=== PATIENT | female | born 1955 | race Caucasian/White ===

== ENCOUNTER 2019-12-20 10:34 | Day surgery (SDC) | payer MEDICARE, SELFPAY ==
--- NOTE | 2019-12-20 | CALC_PTH ---
PATIENT: LESLIE FLORES LOC: [facility] [place] U#:[id number] AGE/SX: 64/F ROOM: RE12/20/[address]: Dr. Genna Okeefe MD : [id number] BED: DIS: 12/20/2019 SPEC #: [id number] RECD: 12/20/19 15:13 STATUS: ITZEL GREWAL #: [id number] ANDREW: 12/20/19 00:[address]: Genna Okeefe DEPT: SURGICAL PATHOLOGY RECD BY: Jayjay Jacobson ENTERED: 12/21/19 10:50 SP TYPE: Calculi OTHR DR: Ashlie Alicea, INGRID Tissues: CALCULI Procedures: Surgery Specimen Level I HEADER OPERATION: Cystoscopy, left ureteroscopy, laser of stone PRE-OP DIAGNOSIS: Left ureteral calculus TISSUE SUBMITTED: Calculi, urinary with photo GROSS DIAGNOSIS A fragment of stone, clinically left ureteral calculus, submitted entirely for stone analysis. SJ:carlito 12/21/19 COMMENT The calculus is submitted in its entirety for chemical stone analysis. The results from this study will be reported separately. GROSS DESCRIPTION Received is one container labeled with the patient's name and designated calculi, urinary with photo. The specimen consists of a fragment of henry-brown stone measuring 0.2 x 0.1 x 0.1 cm. The entire specimen is submitted for stone analysis. / JADIEL:carlito 12/21/19 CPT: 23276
[2019-12-20 11:08] VITALS: BP 107/67; PULSE 71; RESP 16; TEMP 36.9; O2SAT 98; BMI 37.8
[2019-12-20] MEDS: Lactated Ringers 1,000 ML 100 ML IV (11:14)
--- NOTE | 2019-12-20 12:12 | PCM.HP.STD ---
Problem List (1) Left ureteral calculus Status: Acute History of Present Illness Date of Admission: 12/20/19 Chief Complaint: left flank pain, nausea and vomiting The patient is a 64 year old F with history of stones, who has been having 2 weeks of left flank pain similar to stones. She has been seen twice in the emergency room for uncontrolled pain and has failed trial of passage. Risks and benefits were discussed including but not limited to anesthesia, bleeding, infection, injury and the risks of obtaining COVID-19. She understands and desires to proceed. Past Medical History Past Medical History (Chronic Problems): Chronic Problems History of thyroid cancer (Chronic) Status post thyroidectomy, on Synthroid. Hypertension (Chronic) Allergies No Known Allergies Allergy (Verified 12/20/19 11:06) Home Medications: Ambulatory Orders Medication Instructions Recorded Levothyroxine [Synthroid] 75 mcg PO DAILY 09/13/13 Clonazepam [Klonopin] 0.5 mg PO TID 09/07/17 Amlodipine Besylate [Norvasc] 5 mg PO DAILY 12/19/19 Aspirin [Aspirin EC] 325 mg PO DAILY 12/19/19 Duloxetine Hcl [Cymbalta] 30 mg PO DAILY 12/19/19 Hydrocodone/Acetaminophen 2 tab PO BID 12/19/19 [Hydrocodon-Acetaminophen 5-325] Metronidazole [Flagyl] 500 mg PO Q8H 12/19/19 Omeprazole Magnesium [Prilosec Otc] 20 mg PO PRN PRN 12/19/19 Quetiapine Fumarate [Seroquel] 400 mg PO QHS 12/19/19 Topiramate [Topamax] 100 mg PO QHS 12/19/19 traZODone [Desyrel] 100 mg PO QHS 12/19/19 Surgical History: appendectomy, cholecystectomy, tonsillectomy, - - Thyroidectomy. Lithotripsy. 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 Denies: Diarrhea Genitourinary: Denies: Dysuria, Frequency, Retention, Urgency Gynecological: Denies: Vaginal discharge Musculoskeletal: Denies: Muscle pain Skin: Denies: Wounds Neurological: Denies: Difficulty swallowing VTE Information - Inpt Only VTE Present on Admission: Yes VTE Mechan Device Prophylaxis: SCD's VTE Pharm Prophylaxis ordered?: No Reason prophylaxis not ordered:: Treatment Not Indicated Patient Problems: Active and Suspected Problems Left ureteral calculus (Acute) - Physical Exam Vitals/I&O's: Vital Signs Temp Pulse Resp BP Pulse Ox 98.5 F 71 16 107/67 98 12/20/19 11:08 12/20/19 11:08 12/20/19 11:08 12/20/19 11:08 12/20/19 11:08 Oxygen Delivery Method Room Air Weight: 88 kg Body Mass Index (BMI) 37.8 General: Alert, Oriented x3, Cooperative, Well developed, Well nourished HEENT: Atraumatic, Normocephalic Oral: Moist Mucosa Neck: Supple, Trachea Midline Lungs: Normal air movement Cardiovascular: Regular Rhythm Abdomen: Soft, Non Tender, - - left CVA tenderness to palpation Extremities: No Calf Tenderness Skin: No rashes Musculoskeletal: No Muscle Wasting Neurological: Cranial nerves II-XII grossly intact Psych/Mental Status: Normal Affect Current Medications Lactated Ringer's () 1,000 mls @ 100 mls/hr IV .Q10H MAGO Last Admin: 12/20/19 11:14 Dose: 100 mls/hr Documented by: Assessment/Plan All Active Problems Left ureteral calculus (Acute) Chest pain (Acute) cystoscopy, left ureteroscopy, holmium laser lithotripsy and left ureteral stent insertion Essential Procedure Criteria Procedure Essential: Yes Criteria Note: On 11/07/2019 the [place] Department of Health ([facility]) Public Order signed by [facility] Director Elana Wetzel M.D., regarding the Management of Non-Essential Surgeries and Procedures for the purpose of preserving Personal Protective Equipment (PPE) and critical hospital capacity and resources within [place] went into effect as of 11/08/2019 at 5:00PM. According to the [facility] Public Order: This action will remain in full force and effect until the State of Emergency declared by the Governor no longer exists or the Director of the [facility] rescinds or modifies this Order.. This [facility] order stated all non-essential or elective surgeries and procedures that utilize PPE should be delayed unless there is undue risk to the current or future health of a patient. After reviewing the aforementioned [facility] Public Order and the patients clinical case, I have determined that the scheduled procedure meets the criteria to go forward. Risk to Patient if Procedure Delayed: Presence of severe symptoms causing an inability to perform ADL's - uncontrolled pain, nausea and vomiting due to ureteral stone
[2019-12-20] MEDS: Cefazolin 2 GM in 0.9% Normal Saline 100 ML IV (13:02)
[2019-12-20 13:45] VITALS: BP 107/67; BP 108/74; PULSE 83; RESP 14; TEMP 36.2; O2SAT 94
--- NOTE | 2019-12-20 13:49 | DCINST_ITS ---
Discharge Diet: No Restrictions Discharge Activity: May not drive while taking narcotic pain medications. Call your doctor if you observe: Fever of 101 or Higher, Inability to urinate, Inability to have a bowel movement, Uncontrolled pain Allergies/Adverse Reactions: Allergies No Known Allergies Allergy (Verified 12/20/19 11:06) Medications to take at Discharge Levothyroxine [Synthroid] 75 mcg PO DAILY 09/13/13 Clonazepam [Klonopin] 0.5 mg PO TID 09/07/17 Amlodipine Besylate [Norvasc] 5 mg PO DAILY 12/19/19 Aspirin [Aspirin EC] 325 mg PO DAILY 12/19/19 Duloxetine Hcl [Cymbalta] 30 mg PO DAILY 12/19/19 Hydrocodone/Acetaminophen [Hydrocodone-Acetamin 5-325 mg] 2 tab PO BID 12/19/19 Metronidazole [Flagyl] 500 mg PO Q8H 12/19/19 Omeprazole Magnesium [Prilosec Otc] 20 mg PO PRN PRN 12/19/19 Quetiapine Fumarate [Seroquel] 400 mg PO QHS 12/19/19 Topiramate [Topamax] 100 mg PO QHS 12/19/19 traZODone [Desyrel] 100 mg PO QHS 12/19/19 Cephalexin [Keflex] 500 mg PO Q12 3 Days #6 cap 12/20/19 Phenazopyridine HCl [Pyridium] 200 mg PO TID PRN PRN 7 Days #30 tab 12/20/19 The following prescriptions were given: Cephalexin [Keflex] 500 mg PO Q12 3 Days #6 cap Transmission Status: Pending to [facility] Phenazopyridine HCl [Pyridium] 200 mg PO TID PRN PRN 7 Days #30 tab PRN Reason: Bladder Spasms Transmission Status: Pending to [facility] Primary Care Physician: Ashlie Alicea NP-C [Primary Care Provider] - Test Results: Test results from this visit will be discussed in further detail at your follow- up appointment, if applicable. Please Follow Up With: Genna Okeefe MD When: call office to make appt for tomorrow Proposed Discharge Date: 12/20/19
--- NOTE | 2019-12-20 13:50 | OP.PCM_ITS ---
Problem List (1) Left ureteral calculus Status: Acute Report of Operation Date of Procedure: 12/20/19 Pre-Operative Diagnosis: left ureteral calculus Post-Operative Diagnosis: same Surgery/Procedure Performed:: cystoscopy, left ureteroscopy, laser lithotripsy, left ureteral stent insertion Type of Anesthesia:: General Specimen's removed: stone fragment Description of Procedure: Patient is a 64-year-old female with a history of stones. She has had left flank pain for the last several weeks and has been seen in the emergency room twice. She was identified as having a distal left ureteral calculus approximately 2 to 3 mm in size. She failed trial of passage due to recurrent uncontrolled pain associated with nausea and vomiting. She now presents for definitive management of her stone. Risks benefits and alternatives were discussed including but not limited to the risks of anesthesia, bleeding, infection, injury and COVID-19 infection. She understands and started to proceed. The patient was taken to the operating room and placed on the operating room table. Anesthesia monitored the head, neck, airway, IV access and vital signs throughout the case. Once anesthesia was appropriate administered, the patient was placed into dorsal lithotomy position and was prepped and draped in usual sterile fashion. A cystourethroscopy was performed through the urethra. No bladder or urethral mucosal abnormalities were identified. The left ureteral orifice was visualized and intubated with a 0.035 Glidewire. Semirigid ureter oscopy was performed using fluoroscopic visualization. The stone was directly visualized in the distal ureter. Access to the ureter was obtained using the help of a 0.025 Glidewire. The stone was lasered into small fragments using the holmium laser fiber at a setting of 0.6 J and 6 Hz. The stone fragments popped out of the ureteral orifice into the urinary bladder. Ureteroscopy was performed up to the level of the proximal ureter and no further stone fragments were identified, either directly or under fluoroscopic visualization. At this time the ureteroscope was removed, and using the safety wire and the cystoscope, a 6 Tamazight 22 cm stent was inserted over the wire. Good positioning was achieved in the renal pelvis as well as the urinary bladder. The bladder was emptied and one fragment was identified and sent for evaluation. The patient was then awakened and taken to the recovery room in good condition. There were no complications during this procedure. Grafts/Implants Used: 6x22 JJ stent - Complications none - Admit VTE Documentation VTE Present on Admission: Yes VTE Mechan Device Prophylaxis: SCD's VTE Pharm Prophylaxis ordered?: No Reason prophylaxis not ordered:: Treatment Not Indicated
[2019-12-20 14:00] VITALS: BP 107/67; BP 108/68; PULSE 75; RESP 14; O2SAT 98
[2019-12-20 14:15] VITALS: BP 107/67; BP 112/79; PULSE 73; RESP 14; O2SAT 94
[2019-12-20 14:30] VITALS: BP 107/67; BP 127/84; PULSE 73; RESP 16; TEMP 36.3; O2SAT 96
[2019-12-20 15:19] VITALS: BP 107/67; BP 135/79; PULSE 70; RESP 15; TEMP 36.3; O2SAT 94
[2019-12-20] MEDS: HYDROcodone Bitartrate/Apap 5/325 Tablet PO (15:20)
== END 2019-12-20 15:44 | disposition home or self-care (01) ==
LOC: SDC 10:37 → AC 10:40
PROVIDERS: PCP Nurse Practitioner Family; Referring Provider Urology; Visit Provider Urology
PROC: 0TJ98ZZ Inspection of Ureter, Via Natural or Artificial Opening Endoscopic (ICD-10-PCS; CPT 52352; principal; 2019-12-20 14:50)
DX: N20.1 Calculus of ureter (principal); I10 Essential (primary) hypertension; E89.0 Postprocedural hypothyroidism; F41.9 Anxiety disorder, unspecified; K21.9 Gastro-esophageal reflux disease without esophagitis; F32.9 Major depressive disorder, single episode, unspecified; E78.00 Pure hypercholesterolemia, unspecified; Z79.899 Other long term (current) drug therapy; Z85.850 Personal history of malignant neoplasm of thyroid; Z79.82 Long term (current) use of aspirin
CPT/HCPCS: 52356; 76000; 82360; 88300; J7120; C2625; J2405

== ENCOUNTER 2020-01-09 16:59 | Emergency (ER) | payer MEDICARE, SELFPAY ==
[2020-01-09 17:00] VITALS: BP 125/78; PULSE 85; RESP 18; TEMP 36.5; O2SAT 98; BMI 38.5
[2020-01-09] MEDS: fentaNYL 100 MCG/2 ML Ampul 50 MCG IV ×2 (17:33→19:14)
[2020-01-09] MEDS: Ondansetron 4 MG/2 ML Vial IV (19:15)
[2020-01-09 19:18] VITALS: BP 143/83; PULSE 85; PULSE 87; RESP 16; O2SAT 96; O2SAT 97
--- NOTE | 2020-01-09 19:20 | ED.DCSUM_ITS ---
- ER Visit Summary Date of Service: 01/09/20 Chief Complaint: Flank pain History of Present Illness: The patient is a 64 F with left flank pain for days. Patient is a recent history of cystoscopy, lithotripsy, and ureteral stents by Dr. Okeefe. She presented to an outside hospital today for continued flank pain. She had a CT that showed uncomplicated diverticulitis. She was initially going to be treated with Cipro and Flagyl, but then she was prescribed Augmentin, according to the patient. She requested something for pain and she was told she could be prescribed Ultram. She said Ultram does not help her and requested something stronger. She left the ER there. She presents here for pain control. Physical Examination: Afebrile and vital signs unremarkable. Mild left flank tenderness. Otherwise exam unremarkable. Test Results: None. Emergency Department Course and Treatment: I obtained records from the outside hospital. She had a complicated diverticulitis and nonobstructing stones. They also checked blood work and urinalysis. There is no indication to repeat the testing. I believe she is appropriate for outpatient care. She will be prescribed pain medicine and nausea medicine. She will use her antibiotics as prescribed. Follow-up with her doctor and also her urologist. Treatment Plan: As above Disposition: Discharge Impression: Diverticulitis, ureteral colic This note was generated with [employer] dictation software. It may contain incorrect words, spelling, and punctuation that were not noted in review of the chart prior to signing ED Disposition - Plan for ED Patient: Referrals: Ashlie Alicea, SANIYA-C [Primary Care Provider] -
--- NOTE | 2020-01-09 19:23 | ED.DEP ---
ED Disposition - Plan for ED Patient: Instructions: ED Diverticulitis Prescriptions: Hydrocodone Bitart/Apap 5-325 [[place] 5MG-325MG] 1 tab PO Q6H PRN PRN 5 Days #20 tab PRN Reason: Pain Prescription Printed Ondansetron [Zofran Odt] 4 mg PO Q8H PRN PRN #10 tab PRN Reason: Nausea Prescription Printed Referrals: Ashlie Alicea NP-C [Primary Care Provider] -
== END 2020-01-09 19:52 | disposition home or self-care (01) ==
LOC: ED 17:52
PROVIDERS: Emergency Provider Emergency Medicine; PCP Nurse Practitioner Family
DX: K57.92 Diverticulitis of intestine, part unspecified, without perforation or abscess without bleeding (principal); N23 Unspecified renal colic
CPT/HCPCS: 96374; 96375; 99283; A4216; J2405

== ENCOUNTER 2020-01-18 15:40 | Emergency (ER) | payer MEDICARE, SELFPAY ==
[2020-01-18 15:42] VITALS: BP 143/81; PULSE 77; RESP 14; TEMP 36.4; O2SAT 97; BMI 36.7
--- NOTE | 2020-01-18 15:57 | CT_ITS ---
STUDY: CT ABDOMEN AND PELVIS WITHOUT CONTRAST REASON FOR EXAM: Female, 64 years old. Left flank pain, recent lithotripsy with stent. Prior appendectomy, hysterectomy, cholecystectomy, hypertension. RADIATION DOSAGE (If Supplied By Facility): CTDIvol = ( 14.31 ) mGy, DLP = ( 740.02 ) mGycm TECHNIQUE: Transaxial images were obtained from the dome of the diaphragm to the symphysis pubis without oral contrast, and without intravenous contrast. Sagittal and coronal images were reconstructed. Individualized dose optimization techniques were used for this CT. COMPARISON: 08/21/2014 FINDINGS: The visualized lung bases are unremarkable. The visualized portions of the heart are within normal limits. Normal liver. There are surgical clips in the gallbladder fossa consistent with a prior cholecystectomy. Normal spleen. Normal pancreas. Normal bilateral adrenal glands. There are small punctate right upper pole and lower pole calyceal stones without evidence for hydronephrosis. No stent is identified. Normal left kidney. Normal visualized stomach. Normal small intestine. There are multiple colonic diverticula consistent with diverticulosis. There is non-visualization of the appendix. Normal abdominal aorta. Normal inferior vena cava. Normal retroperitoneum. Normal urinary bladder. There is absence of the uterus consistent with a prior hysterectomy. There is a small umbilical hernia containing fat. Normal osseous structures. CT/Abdomen/Pelvis without Cont IMPRESSION: Small 1 to 2 mm nonobstructing right renal stones. No stent is identified. No evidence for obstruction. Diverticulosis. Cholecystectomy. Hysterectomy. Electronically Signed: Carlos Caballero, at 17:21 EDT Tel , Service support ,
[2020-01-18 16:26] LABS: Mucous, Urine 0 SEEN /hpf (<or=2+); Red Blood Cells-Urine 0 SEEN /hpf (0-5); White Blood Cells 0 SEEN /hpf (0-5)
[2020-01-18] MEDS: Ondansetron 4 MG/2 ML Vial IV (16:27)
[2020-01-18] MEDS: Morphine 4 MG/ML Syringe IV (16:27)
[2020-01-18 16:32] LABS: Absolute Lymphocyte Count 2.37 X10^3/uL (0.83-4.51); Absolute Neutrophil Count 2.2 X10^3/uL (2.0-7.7); Basophil# 0.04 X10^3/uL; Basophil% 0.7 % (0-1); Eosinophil# 0.11 X10^3/uL; Eosinophils% 2.1 % (0-5); Hematocrit 41.7 % (37-47); Hemoglobin 13.8 g/dL (12.0-15.0); Lymphocyte # 2.37 X10^3/ul (4.0); Lymphocyte % 44.3 % (19-41); Mean Corp Hgb Conc 33.1 g/dL (32-36); Mean Corpuscular Volume 90.7 fL (81-99); Mean Platelet Vol. 9.8 fl (6.2-12.0); Monocyte# 0.56 X10^3/uL; Monocyte% 10.5 % (0-10); NRBC Flagged by Analyzer 0 % (0-5); Neutrophil # 2.22 X10^3/uL (2.7-7.7); Neutrophil % 41.5 % (47-70); Platelet Count 294 K/mm3 (150-450); RBC Distribution Width SD 42.7 fl (35.1-43.9); White Blood Count 5.4 K/mm3 (4.4-11.0)
[2020-01-18 16:34] LABS: Glucose, Dipstick Normal (Normal); Ketone-Dipstick Negative (Negative); Leukocyte Esterase-Dipstick Negative /ul (Negative); Nitrite-Dipstick Positive (Negative); Occult Blood-Urine Negative /ul (Negative); Protein-Dipstick 15 mg/dl (Negative); Specific Gravity, Urine 1.015 (1.002-1.030); Urine Clarity Sl. Cloudy (Clear); Urine Urobilinogen 8 mg/dl (Normal)
[2020-01-18 16:47] LABS: Anion Gap 8 (5-15); BUN 14 mg/dL (7-18); BUN/Creat Ratio 17.8 RATIO (10-20); Calcium,Total 9.5 mg/dL (8.5-10.1); Chloride 106 mmol/L (98-107); Creatinine, Serum 0.79 mg/dL (0.55-1.02); EST Glomerular Filtration Rate 78 mL/min (>60); Est Glom Filt Rate - Afr Amer 94 mL/min (>60); Estimated Creatinine Clearance 51.68 ml/min; Glucose 94 mg/dL (74-106); Potassium 3.8 mmol/L (3.5-5.1); Sodium Level 142 mmol/L (136-145)
--- NOTE | 2020-01-18 17:01 | ED.VISSUMM ---
- ER Visit Summary Date of Service: 01/18/20 Chief Complaint: Left flank pain History of Present Illness: The patient is a 64 F who has a history of diverticulitis and left renal colic. I saw her during her previous visit. She had an outside CT that showed uncomplicated diverticulitis and nonobstructing stones. She had previously had cystoscopy and stenting by Dr. Okeefe and was planning to follow with her. She was treated at the outside hospital with Augmentin for her diverticulitis. I prescribed her pain medicine and she was going to follow-up as an outpatient. She presents today with continued left flank pain. She was unable to follow-up with her urologist. She is out of medication. She continues to have dysuria and frequency, and she continues to have diarrhea as well. Physical Examination: Afebrile and vital signs unremarkable. No acute distress. Alert and oriented. Heart regular. Lungs no respiratory distress. Abdomen soft and nontender. Skin appears normal. Test Results: Labs and imaging are pending. Emergency Department Course and Treatment: Patient has continued pain and symptoms despite outpatient therapy. She has been unable to follow-up. Will check labs, urinalysis, and imaging. She received fluids, pain medicine, and nausea medicine while awaiting results. CBC was normal. BMP was normal. Urinalysis was unremarkable. CT showed 1 to 2 mm nonobstructing stones in the right kidney. Nothing on the left. No stents. Postoperative changes noted. No diverticulitis or complications of diverticulitis noted. I am not sure what is causing this patient's continued flank pain. Her testing here is reassuring. I believe she is appropriate for outpatient care. She will still follow-up with her urologist. She will also follow-up with her PCP or pain management for chronic pain. Return for any new or worsening issues. Treatment Plan: As above Disposition: Discharge Impression: Left flank pain This note was generated with [employer] dictation software. It may contain incorrect words, spelling, and punctuation that were not noted in review of the chart prior to signing ED Disposition - Plan for ED Patient: Referrals: Ashlie Alicea NP-C [Primary Care Provider] -
[2020-01-18 17:06] LABS: Color, Urine SEE COMMENT BELOW (Yellow); Urine Bilirubin Dipstick 6 mg/dL (Negative)
[2020-01-18 17:22] LABS: Bacteria RARE /hpf (None Seen); Squamous Epithelial Cells - UA 0-5 SEEN /hpf (5-10)
--- NOTE | 2020-01-18 18:02 | ED.DEP ---
ED Disposition - Plan for ED Patient: Instructions: ED Flank Pain Uncertain Cause Referrals: Ashlie Alicea, SANIYA-C [Primary Care Provider] -
[2020-01-18 18:24] VITALS: BP 130/69; PULSE 67; RESP 14; O2SAT 95
== END 2020-01-18 18:25 | disposition home or self-care (01) ==
LOC: ED 17:01
PROVIDERS: Emergency Provider Emergency Medicine; PCP Nurse Practitioner Family
DX: R10.9 Unspecified abdominal pain (principal); Z79.82 Long term (current) use of aspirin
CPT/HCPCS: 74176; 80048; 81001; 85025; 96361; 96374; 96375; 99283; J7030; J2405

== ENCOUNTER 2020-09-26 12:50 | Emergency (ER) | payer MEDICARE, SELFPAY ==
[2020-09-26 12:52] VITALS: BP 150/105; PULSE 86; RESP 17; TEMP 36.5; O2SAT 95; BMI 36.8
--- NOTE | 2020-09-26 13:06 | RAD_ITS ---
STUDY: X-RAY - LEFT FEMUR REASON FOR STUDY: Female, 65 years old. Knee pain radiating to hip. Injury. TECHNIQUE: 2 view(s) of the femur on 4 images. COMPARISON: None. FINDINGS: Generalized osteopenia. 3 component total knee arthroplasty. Normal visualized femur. Clips in the pelvis. RAD/Femur Min 2 Views IMPRESSION: Osteopenia with no acute abnormality. Electronically Signed: Billy Neal MD at 13:42 EST , Service support ,
--- NOTE | 2020-09-26 13:07 | ED.VIS.GEN ---
History of Present Illness Chief Complaint: Lower Extremity Injury Narrative: Presents with left knee pain, apparently she had a knee replacement in that knee and she bent her knee the wrong way earlier today. She is still able to ambulate on it, however it hurts more than normal. She denies any other injury. No head injury no loss consciousness. Past medical history: Depression, anxiety, chronic low back pain Medications: Reviewed including hydrocodone Social history: Unremarkable Review of systems: All systems negative except as indicated General: No head injury, no loss of consciousness Eyes: Denies: Visual changes - bilaterally ENT: No facial injury Cardiovascular: Denies: Chest pain Respiratory: Denies: Dyspnea, Cough Gastrointestinal: No vomiting or nausea Musculoskeletal: Denies: Left knee pain, left thigh pain Skin: No abrasions or laceration Neurological: Denies: No weakness or paresthesias Hematologic: Denies: Easy bruising, Easy bleeding Physical exam General: Well nourished, Well developed, No Acute Distress Head: Normocephalic, Atraumatic ENT: Moist mucous membranes Neck: Supple, Nontender, No lymphadenopathy, no C-spine tenderness Cardiovascular: Regular rate, Regular rhythm Respiratory: No distress, CTA bilaterally Abdomen: Soft, Nontender, Nondistended Back: Lumbar tenderness which she tells me is chronic and unchanged Extremities: Tender over the left knee there is no effusion. There is no laceration. There is a normal extensor mechanism. No laxity on anterior posterior mediolateral stressors. Pain is diffuse throughout the knee. There is some tenderness over the mid and distal IT band region of the femur. No hip pain with normal flexion extension and logrolling. Skin: Normal color, No rash Neurological: Alert, Normal Strength, Normal Sensation Past Medical History - Allergies and Home Meds Allergies/Adverse Reactions: Allergies fentanyl Allergy (Verified 09/26/20 12:51) Hives tramadol [From Ultram] Allergy (Verified 09/26/20 12:51) Hives Primary Care Physician: Jose Jacobson MD [Primary Care Provider] - Surgical History: appendectomy, cholecystectomy, tonsillectomy, - - Thyroidectomy. Lithotripsy. Smoking Status: Never smoker Physical Exam Vital Signs/Narrative: Vital Signs Temp Pulse Resp BP Pulse Ox 09/26/20 12:52 97.7 F L 86 17 150/105 H 95 Diagnostic/Tx/Re-eval - Medical Decision Making Patient has a normal work-up as far as x-rays. The nurse did alert me that she felt a 2-second episode of palpitations while she was being moved in bed to x-rays she had never had chest pain or any other symptoms. 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 I think she can be safely discharged home. She was given analgesia in the ED and she has analgesia at home per her pain management physician. ED Disposition - Plan for ED Patient: Disposition: Home or Assisted Living Diagnosis: Knee injury Instructions: ED Knee Pain of Uncertain Cause, ED Muscle Strain, Extremity Referrals: Jose Jacobson MD [Primary Care Provider] - 3-5 Days
--- NOTE | 2020-09-26 13:20 | RAD_ITS ---
STUDY: X-RAY - LEFT KNEE REASON FOR EXAM: Female, 65 years old. Injury. Knee pain. TECHNIQUE: 3 view(s) of the knee. COMPARISON: None. FINDINGS: Generalized osteopenia. Three component total knee arthroplasty in anatomic alignment with no complications identified. Cancellus screw in the distal lateral femur. The soft tissue structures are unremarkable. RAD/Knee 3 Views IMPRESSION: Osteopenia with uncomplicated 3 component total knee arthroplasty. No acute finding. Electronically Signed: Billy Neal MD at 13:44 EST , Service support ,
--- NOTE | 2020-09-26 14:00 | NURSING ---
Dr. Moreno made aware of chest palpitations and pain after moving onto cot in radiology. Pt currently on monitor, NSR HR 76 w/ no c/o of pain.
[2020-09-26] MEDS: HYDROmorphone 1 MG/ML Syringe IM (14:36)
== END 2020-09-26 14:44 | disposition home or self-care (01) ==
PROVIDERS: Emergency Provider Emergency Medicine; PCP Family Medicine
DX: S89.92XA Unspecified injury of left lower leg, initial encounter (principal); X58.XXXA Exposure to other specified factors, initial encounter
CPT/HCPCS: 73552; 73562; 96372; 99282

== ENCOUNTER 2020-10-29 08:41 | Outpatient (RCR) | payer MEDICARE, SELFPAY ==
[2020-10-29] MEDS: COVID-19 VACC, MRNA(PFIZER)/PF 30 MCG/0.3 ML SYRINGE IM (08:00)
[2020-11-19] MEDS: COVID-19 VACC, MRNA(PFIZER)/PF 30 MCG/0.3 ML SYRINGE IM (08:06)
== END 2021-01-28 23:59 ==
LOC: IMMUN 08:41
PROVIDERS: PCP Family Medicine; Visit Provider Family Medicine
DX: Z23 Encounter for immunization (principal)
CPT/HCPCS: 0001A; 0002A; 91300

== ENCOUNTER 2023-11-04 15:08 | Emergency (ER) | payer MEDICARE, SELFPAY ==
[2023-11-04 15:08] VITALS: BP 131/77; PULSE 78; RESP 14; TEMP 36.8; O2SAT 95; BMI 37.8
[2023-11-04 15:50] LABS: Absolute Lymphocyte Count 2.35 X10^3/uL (0.83-4.51); Absolute Neutrophil Count 2.7 X10^3/uL (2.0-7.7); Basophil# 0.07 X10^3/uL; Basophil% 1.2 % (0-1); Eosinophil# 0.19 X10^3/uL; Eosinophils% 3.2 % (0-5); Hematocrit 42.8 % (37-47); Hemoglobin 14.2 g/dL (12.0-15.0); Lymphocyte # 2.35 X10^3/ul (0.83-4.51); Mean Corp Hgb Conc 33.2 g/dL (32-36); Mean Corpuscular Hgb 29.8 pg (27.0-32.0); Mean Corpuscular Volume 89.7 fL (81-99); Mean Platelet Vol. 10.5 fl (6.2-12.0); Monocyte# 0.54 X10^3/uL; Monocyte% 9.2 % (0-10); NRBC Flagged by Analyzer 0 % (0-5); Neutrophil % 46.1 % (47-70); Platelet Count 265 K/mm3 (150-450); RBC Distribution Width CV 12.6 % (11.6-14.6); RBC Distribution Width SD 41.8 fl (35.1-43.9); Red Blood Count 4.77 M/mm3 (4.2-5.4); White Blood Count 5.9 K/mm3 (4.4-11.0)
[2023-11-04 16:03] LABS: Anion Gap 4 (5-15); BUN 18 mg/dL (7-18); BUN/Creat Ratio 23.1 RATIO (10-20); Calcium,Total 9.3 mg/dL (8.5-10.1); Chloride 106 mmol/L (98-107); Creatinine, Serum 0.78 mg/dL (0.55-1.02); EST Glomerular Filtration Rate 78 mL/min (>60); Est Glom Filt Rate - Afr Amer 94 mL/min (>60); Estimated Creatinine Clearance 69.11 ml/min; Glucose 106 mg/dL (74-106); Potassium 4.2 mmol/L (3.5-5.1); Sodium Level 140 mmol/L (136-145)
[2023-11-04 16:11] LABS: International Normalized Ratio 0.9; Prothrombin Time (Protime)PT. 11.9 SECONDS (11.7-14.9)
[2023-11-04 16:12] LABS: Partial Thromboplast Time 26.5 Seconds (24.1-36.2)
--- NOTE | 2023-11-04 16:26 | RAD_ITS ---
EXAM: XR CHEST, 1 VIEW CLINICAL INDICATION: Stroke TECHNIQUE: Frontal view of the chest. COMPARISON: No relevant prior studies available. FINDINGS: LUNGS AND PLEURAL SPACES: Unremarkable. No consolidation or edema. No pneumothorax. No effusion. HEART: Unremarkable. Cardiac silhouette not enlarged. MEDIASTINUM: Central airways and mediastinal contour are unremarkable. BONES/JOINTS: Unremarkable. No acute fracture. SOFT TISSUES: Unremarkable. RAD/Chest 1 View (Portable) IMPRESSION: No radiographic evidence of acute cardiopulmonary disease. Electronically Signed: Rasta Harrison MD at 17:08 EDT ,
--- NOTE | 2023-11-04 16:30 | EX.ED.DYSGE1 ---
HPI History of Present Illness Chief Complaint: Headache [facility] Medical History Arthritis Atrial fibrillation Frequent headaches Gastrointestinal problem Heart disease High cholesterol History of back problems History of emotional problems History of stroke Hormone deficiency Kidney stones Thyroid disease Home Medications levothyroxine 75 mcg tablet 75 mcg PO DAILY 09/13/13 [History Last Taken 12/20/19] duloxetine 30 mg capsule,delayed release 30 mg PO DAILY 12/19/19 [History Last Taken Unknown] quetiapine 400 mg tablet 400 mg PO QHS 12/19/19 [History Last Taken Unknown] trazodone 100 mg tablet 100 mg PO QHS 12/19/19 [History Last Taken Unknown] ondansetron 4 mg disintegrating tablet 4 mg PO Q8H PRN PRN Nausea #10 tabs 01/09/20 [Rx Last Taken Unknown] hydroxyzine HCl 50 mg tablet 50 mg PO BID PRN PRN Anxiety 01/18/20 [History Last Taken Unknown] lamotrigine 150 mg tablet 150 mg PO BID 01/18/20 [History Last Taken Unknown] prazosin 1 mg capsule 1 mg PO QHS 01/18/20 [History Last Taken Unknown] alprazolam 1 mg tablet 1 mg PO DAILY 03/17/21 [History Last Taken Unknown] aspirin 81 mg tablet,delayed release (Adult Aspirin Regimen) 81 mg PO DAILY 03/17/21 [History Last Taken Unknown] atorvastatin 80 mg tablet 80 mg PO DAILY 03/17/21 [History Last Taken Unknown] clopidogrel 75 mg tablet 75 mg PO DAILY 03/17/21 [History Last Taken Unknown] hydrocodone 7.5 mg-acetaminophen 325 mg tablet 1 tab PO Q6H PRN 03/17/21 [History Last Taken Unknown] propranolol 10 mg tablet 10 mg PO BID #60 tabs 03/17/21 [Rx Last Taken Unknown] ubrogepant 50 mg tablet (Ubrelvy) 50 mg PO .COMPLEX #14 tabs 03/17/21 [Rx Last Taken Unknown] Allergy/AdvReac Type Severity Reaction Status Date / Time fentanyl Allergy Hives Verified 11/04/23 15:08 tramadol [From Ultram] Allergy Hives Verified 11/04/23 15:08 Family History Father CVA (cerebral vascular accident) Brother CVA (cerebral vascular accident) Myocardial infarction Sister CVA (cerebral vascular accident) Myocardial infarction Social History (Updated 03/17/21 @ 11:08 by Kylie Patterson) Smoking Status: Never smoker Electronic Cigarette Use: not used second hand exposure: No alcohol intake: current alcohol intake frequency: holidays/special occasions only details: Occational substance use type: does not use EXAM Physical Exam Const Vital Signs: 11/04/23 15:08 11/04/23 17:08 Temperature 98.3 F Temperature Source Temporal Pulse Rate 78 65 Respiratory Rate 14 15 Blood Pressure 131/77 H 119/64 Blood Pressure Mean 95 82 Pulse Ox 95 92 Oxygen Delivery Method Room Air Room Air MDM MDM MDM Narrative Medical decision making narrative: HISTORY OF PRESENT ILLNESS: [] year old presents with headache. [] Patient denies sudden onset or thunderclap headache, denies maximal intensity within 1 minute, vomiting, neck pain or stiffness, changes in vision, fever, history malignancy, syncope, seizures. REVIEW OF SYSTEMS: All other systems reviewed and are negative except as noted in the history of present illness. At least 10 review of systems reviewed and are negative except as noted in history of present illness. PHYSICAL EXAM: Nursing triage notes reviewed, Vital signs reviewed Constitutional: please see mdm HENT: MMM Eyes: Pupils equal round and reactive to light, Extraocular muscles intact Neck: No stridor, no JVD, full neck ROM Lungs: Clear to auscultation, No wheezing or rales. No increased work of breathing, no conversational dyspnea, no accessory muscle use, no nasal flaring. No respiratory distress noted Heart: Regular rate and rhythm, No murmurs, No rubs and No gallops, 2+ distal pulses (radial, femoral, posterior tibial) in all extremities Abdomen: Soft, there is no tenderness, rigidity, rebound or guarding, no obvious peritoneal signs, no palpable pulsatile abdominal masses, no auscultated abdominal bruit : No CVAT Extremities: No edema Neuro: Alert and oriented x3, neuro exam at baseline, cranial nerves II through XII are intact. No pain with extraocular muscle movement. There is negative test of skew. Normal speech. 5 of 5 strength in upper and lower extremities in flexion extension. Intact sensation to light touch in upper and lower extremity dermatomes. No truncal or extremity ataxia. No dysdiadochokinesia. Normal gait. 2+ reflexes. No meningeal signs. Negative Babinski. NIH of 0 Skin: No rash or lesions noted MEDICAL DECISION MAKING: Chief Complaint: Headache External records reviewed: CT scan of the brain from 2020 shows no acute hemorrhage, infarct, mass Factors affecting care: Migraine Social determinants of health: none History obtained from others: Consults: none ALL IMAGES (IF OBTAINED) HAVE BEEN PERSONALLY REVIEWED AND INTERPRETED BY MYSELF. CT scan of the head shows no evidence of intracranial abnormality I have personally reviewed the patient's chest x-ray. Chest x-ray is unremarkable for pulmonary edema, pneumothorax, pneumonia or focal cardiopulmonary abnormality. CBC without leukocytosis, severe anemia, no thrombocytopenia. Coagulation factors within normal limits BMP without evidence of significant electrolyte abnormalities, no anion gap, no acute kidney injury. MDM Narrative: Patient was hemodynamically stable, afebrile nontoxic-appearing. Exam without focal deficits. I gave IV reglan, decadron, benadryl, clonazapem. I considered the following differential diagnosis: Subarachnoid hemorrhage, epidural hematoma, ICH, meningitis, carotid artery dissection, primary headache (primary headache, migraine, tension headache, cluster headache) The patient looks great and is in no significant objective discomfort currently. The patient's headache is non-specific. Exam is unremarkable. The patient is in no distress and the patient?s neurological exam is non-focal, neck is supple and without meningismus. The headache is not consistent with meningitis or infection, nor is it consistent with intracranial bleed (SAH etc.), carotid dissection, nor mass by history and examination. Medication and outpatient follow-up was instructed. The patient was instructed to return as needed or if symptoms changed or worsened, fever developed or inability to tolerate fluids. The patient agreed with plan. The patient and/or family, caregivers express understanding. The patient and/or family, caregivers agrees with the plan. Total critical care time today provided was at least 0 minutes. This excludes separately billable procedures. Critical care time (if documented) is secondary to the patient having high probability of clinically significant/life threatening deterioration in the patient's condition which required my urgent intervention. Shared decision making: I will have a discussion with the patient and or visitors regarding risk/benefits of further testing or admission. They will be made aware of of the risk/benefits inherent in this decision they will be given the opportunity to voice understanding. Impression: 1. Headache 2. Nausea vomiting 3. History of migraines Disposition: Discharge home Lab Data Labs: Laboratory Results - last 24 hr 11/04/23 15:30 WBC 5.9 RBC 4.77 Hgb 14.2 Hct 42.8 MCV 89.7 MCH 29.8 MCHC 33.2 RDW Std Deviation 41.8 RDW Coeff of Sera 12.6 Plt Count 265 MPV 10.5 Immature Gran % (Auto) 0.300 Neut % (Auto) 46.1 L Lymph % (Auto) 40.0 [place] % (Auto) 9.2 Eos % (Auto) 3.2 Baso % (Auto) 1.2 H Absolute Neuts (auto) 2.7 Absolute Lymphs (auto) 2.35 Nucleated RBC % 0 PT 11.9 INR 0.9 APTT 26.5 Sodium 140 Potassium 4.2 Chloride 106 Carbon Dioxide 30.0 Anion Gap 4 L BUN 18 Creatinine 0.78 Estim Creat Clear Calc 69.11 Est GFR (MDRD) Af Amer 94 Est GFR (MDRD) Non-Af 78 BUN/Creatinine Ratio 23.1 H Glucose 106 Calcium 9.3 Radiography Diagnostic Testing: Clinical Impression(s) from Imaging Studies Chest X-Ray 11/04/23 16:26 IMPRESSION: No radiographic evidence of acute cardiopulmonary disease. Electronically Signed: Rasta Harrison MD at 17:08 EDT , Brain CT 11/04/23 17:15 IMPRESSION: Negative head/brain CT without intravenous contrast. There has been no significant change from the reference exam. Electronically Signed: Rasta Harrison MD at 18:40 EDT , Discharge Plan Triage Chief Complaint: Headache ED Provider: Emanuel Benz Dx/Rx/DC Orders Prescriptions: No Action aspirin [Adult Aspirin Regimen] 81 mg tablet,delayed release (DR/EC) 81 mg PO DAILY hydrocodone-acetaminophen 7.5-325 mg tablet 1 tab PO Q6H PRN clopidogrel 75 mg tablet 75 mg PO DAILY atorvastatin 80 mg tablet 80 mg PO DAILY alprazolam 1 mg tablet 1 mg PO DAILY propranolol 10 mg tablet 10 mg PO BID Qty: 60 2RF Ubrelvy 50 mg tablet 50 mg PO .COMPLEX Qty: 14 2RF Rx Instructions: 50 mg PO daily as needed for headache levothyroxine 75 MCG tablet 75 mcg PO DAILY Patient Comments: THYROID trazodone 100 MG tablet 100 mg PO QHS duloxetine 30 MG capsule 30 mg PO DAILY quetiapine 400 MG tablet 400 mg PO QHS ondansetron 4 MG tablet 4 mg PO Q8H PRN PRN (Reason: Nausea) Qty: 10 0RF lamotrigine 150 MG tablet 150 mg PO BID prazosin 1 MG capsule 1 mg PO QHS hydroxyzine HCl 50 MG tablet 50 mg PO BID PRN PRN (Reason: Anxiety) Primary Care Provider: Jose Jacobson Referrals: Jose Jacobson MD [Primary Care Provider] -
[2023-11-04 17:08] VITALS: BP 119/64; PULSE 65; RESP 15; O2SAT 92
--- NOTE | 2023-11-04 17:15 | CT_ITS ---
EXAM: CT HEAD WITHOUT INTRAVENOUS CONTRAST CLINICAL INDICATION: headache r/o mass, ICH TECHNIQUE: Multiple axial images were obtained of the head without intravenous contrast. This CT exam was performed using one or more of the following dose reduction techniques: automated exposure control, adjustment of the mA and/or kV according to patient size, and/or use of iterative reconstruction technique. COMPARISON: 09/07/2017 FINDINGS: BRAIN AND EXTRA-AXIAL SPACES: Unremarkable. No intra- or extra-axial hemorrhage. No evidence of acute infarct. No intracranial mass or mass effect. There is preservation of the galvan/white matter interface. Posterior fossa structures are unremarkable. Ventricles are appropriate for age. No hydrocephalus. Basal cisterns are patent. BONES/JOINTS: Unremarkable. No discrete lytic or blastic abnormalities. SINUSES: Unremarkable as visualized. Clear. MASTOID AIR CELLS: Unremarkable. Clear. ORBITS: Visualized globes, extraocular muscles, optic nerves and retrobulbar fat appear unremarkable. CT/Brain/Head without Contrast IMPRESSION: Negative head/brain CT without intravenous contrast. There has been no significant change from the reference exam. Electronically Signed: Rasta Harrison MD at 18:40 EDT ,
[2023-11-04] MEDS: dexAMETHasone 4 MG/ML Vial IV (17:26)
[2023-11-04] MEDS: 0.9% Normal Saline (1000mL) 1,000 ML 999 ML IV (17:26)
[2023-11-04] MEDS: Metoclopramide 10 MG/2 ML Vial 5 MG IV (17:26)
[2023-11-04] MEDS: clonazePAM 1 MG Tablet PO (17:56)
[2023-11-04] MEDS: DiphenhydrAMINE 50 MG/ML Syringe IV (19:04)
[2023-11-04 19:17] VITALS: BP 109/63; PULSE 71; RESP 14; TEMP 36.8; O2SAT 96
--- NOTE | 2023-11-04 19:25 | ED.RN ---
RN explained each medication before administration multiple times. Pt became tearful after all medications were given stating that she did not know what she was given. RN explained medications again, also informed pt that she has the right to refuse any medications given. Pt stated she was unaware of this. Pt then asked for her home Klonopin 1mg PO. RN informed Dr. Benz and order was given. Pt tearful while RN was giving pt Benadryl. Pt kept stating that she wanted her and was scared. RN tried to reassure pt and continued to ask if this medication was okay to give. Pt agreed that she wanted mediation. RN provided emotional support and answered any questions pt had. was then obtained from waiting room area.
== END 2023-11-04 19:17 | disposition home or self-care (01) ==
PROVIDERS: Emergency Provider Emergency Medicine; PCP Family Medicine; Visit Provider Emergency Medicine
DX: R51.9 Headache, unspecified (principal); I48.91 Unspecified atrial fibrillation; R11.2 Nausea with vomiting, unspecified; Z86.73 Personal history of transient ischemic attack (TIA), and cerebral infarction without residual deficits
CPT/HCPCS: 70450; 71045; 80048; 85025; 85610; 85730; 93005; 96374; 96375; 99283; J7030; A4216